=== PATIENT | male | born 1950 | race Caucasian/White ===

== ENCOUNTER → 2024-03-09 | Outpatient (CLI) | payer MEDICARE, OTHER ==
--- NOTE | 2024-03-04 12:33 | NUR ---
LMOM WITH CALL BACK NUMBER AND INSTRUCTIONS.
[~2024-03-09] VITALS: Ht 188 cm; Wt 110.4 kg
[2024-03-09] VITALS (13 sets, daily range): BP systolic 110–150; BP diastolic 69–90; PULSE 76–101; TEMP 97.6
[~2024-03-09] MED LIST: ASPIRIN 32325 MG/TAB PO; EPA FISH OIL1 SGL PO; PEPCID40 MG PO; PRIL40 PO; PRINIVIL40 MG PO; ZOCOR 80MG80 MG PO
--- NOTE | 2024-03-09 11:13 | NUR ---
SPECIMEN COLLECTED AT 1017.
--- NOTE | 2024-03-09 12:53 | NUR ---
1200-- DR. HODGES REVIEWED THE FIRST TWO CHEST X RAYS AND STATES THAT PATIENT IS GOOD TO GO HOME AND THERE IS NO PNEUMO EVIDENT.
--- NOTE | 2024-03-09 12:54 | NUR ---
PATIENT HAS COMPLETED HIS RECOVERY WITHOUT ISSUE. IV REMOVED WITHOUT ISSUE. PATIENT STILL DENIES ANY DIFFICULTY BREATHING OR SHORTNESS OF BREATH. PATIENT CONTINUES TO DENY PAIN. BANDAGE REMAINS CLEAN, DRY, AND INTACT. PATIENT GOT DRESSED BY HIMSELF. ESCORTED PATIENT VIA WHEELCHAIR WITH ALL OF HIS BELONGINGS TO THE PATIENT ENTRANCE. HE GOT INTO THE FRONT PASSENGER SEAT OF HIS RIDE UNASSISTED. ALL NEEDS MET.
== END ==
LOC: COL.RAD 08:29
DX: C34.32 Malignant neoplasm of lower lobe, left bronchus or lung (principal); R91.8 Other nonspecific abnormal finding of lung field
CPT/HCPCS: 32107